=== PATIENT | female | born 1995 | race Caucasian/White ===

== ENCOUNTER 2021-10-10 15:31 | Outpatient (REF) | payer BC, SELFPAY ==
--- NOTE | 2021-10-10 14:30 | PAPFT_PTH ---
PATIENT: Awa Dudley LOC: [facility] U#:[id number] AGE/SX: 26/F ROOM: RE10/10/[address]: TOMMY Sarkar : 1995 BED: DIS: 10/10/2021 SPEC #: [id number] RECD: 10/10/21 17:07 STATUS: SULAIMAN REZohra #: [id number] BALNE: 10/10/21 14:[address]: Annalee Pate DEPT: [facility] Cytology RECD BY: Shamika Pham ENTERED: 10/10/21 17:07 SP TYPE: PAPFT OTHR DR: Isaias Recio Tissues: 1 - CX/ENDOCX FOR PAP SMEARS Procedures: PAP THIN PREP/[facility] Screening Comments: [id number]
== END 2021-10-10 15:32 | disposition home or self-care (01) ==
LOC: LBN 15:31
PROVIDERS: PCP Internal Medicine; Visit Provider Nurse Practitioner Family
DX: Z12.4 Encounter for screening for malignant neoplasm of cervix (principal)
CPT/HCPCS: 88142

== ENCOUNTER 2021-10-17 01:37 | Outpatient (CLI) | payer BC, SELFPAY ==
[2021-10-17 15:16] LABS: TSH (W/Ref FT4) 0.86 uIU/mL (0.36-3.74)
[2021-10-20 09:46] LABS: DHEA Sulfate 277 ug/dL (96-512)
[2021-10-21 18:08] LABS: 17-Hydroxyprogesterone <40 ng/dL
[2021-10-24 10:26] LABS: Testosterone, Total 23 ng/dL (8-60)
== END 2021-10-17 01:38 | disposition home or self-care (01) ==
LOC: LBO 01:38
PROVIDERS: PCP Internal Medicine; Visit Provider Nurse Practitioner Family
DX: N91.2 Amenorrhea, unspecified (principal)
CPT/HCPCS: 36415; 82627; 84402; 84403; 83498; 84146; 84443

== ENCOUNTER 2024-05-15 08:14 | Outpatient (REF) | payer BC, SELFPAY ==
[2024-05-16 12:15] LABS: Chlamydia Result Negative (Negative); GC Result Negative (Negative)
== END 2024-05-15 08:15 | disposition home or self-care (01) ==
LOC: LBN 08:14
PROVIDERS: PCP Internal Medicine; Visit Provider Nurse Practitioner Women's Health
DX: Z11.3 Encounter for screening for infections with a predominantly sexual mode of transmission (principal)
CPT/HCPCS: 87491; 87591

== ENCOUNTER 2024-10-22 14:21 | Observation (INO) | payer BC, SELFPAY ==
[2024-10-22] VITALS (31 sets, daily range): BP systolic 131–158; BP diastolic 65–92; PULSE 61–77; RESP 13–20; TEMP 36.4–36.6; O2SAT 98–100
--- NOTE | 2024-10-22 14:30 | DI.CT_ITS ---
Exam(s) CT ABDOMEN PELVIS W EXAM: CT ABDOMEN PELVIS W CLINICAL HISTORY: right upper abdominal and back pain. TECHNIQUE: Imaging Protocol: Axial computed tomography images with coronal and sagittal reformatted images were created and reviewed CONTRAST MATERIAL: Intravenous: Omnipaque 350 Contrast volume:100 ml Oral: no COMPARISON: US ABDOMEN ULTRASOUND (P) from 12/31/2014 FINDINGS: ABDOMEN and PELVIS: Lung Bases: No acute findings. Liver: Normal density. No suspicious mass. Gallbladder and biliary tract: Single calcified gallstone in the gallbladder neck. Gallbladder appea rs mildly distended. No wall thickening or pericholecystic fluid. No biliary dilation. Pancreas: Normal density. No abnormal calcifications or inflammatory process. No evidence of mass. Spleen: Normal. Kidneys: Normal size, contour and axis. No radiodense stones. No obstructive uropathy. No suspicious masses seen. Adrenal glands: No masses seen. Vasculature: Abdominal aorta non-dilated. Soft tissues: Tiny fat containing left inguinal hernia. Bladder: No gross wall thickening. No calculi.No focal mass. Bowel: No obstruction. No bowel wall thickening. Appendix normal. Mild sigmoid diverticulosis. No rmal quantity of stool. Peritoneal cavity: No ascites. No focal collection. No mesenteric inflammatory response. No free air . Bones: Unremarkable for age. Reproductive organs: Unremarkable. Lymph nodes: No pathologically enlarged lymph nodes. IMPRESSION:: Single calcified gallstone within the gallbladder neck. Mild gallbladder distention. No wall thickening or biliary dilatation. RADIATION DOSE DELIVERED: Total DLP DATA REPOSITORY: All CT scans at this facility are submitted to the National Radiology Data Registry (NRDR) Dose Index Registry (DIR) with the [employer] (ACR). RADIATION OPTIMIZATION: All CT scans at this facility use at least one of these dose optimization te chniques: automated exposure control; mA and/or kV adjustment per patient size (includes targeted exa ms where dose is matched to clinical indication); or iterative reconstruction.
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
[2024-10-22 15:02] LABS: Abs Immature Grans 0.02 10^3/uL (0.0-0.06); Absolute Basophil Count 0.05 10^3/uL (0.0-0.2); Absolute Eosinophil Count 0.31 10^3/uL (0.0-0.7); Absolute Lymphocyte Count 2.15 10^3/uL (1.2-3.4); Absolute Monocyte Count 0.77 10^3/uL (0.1-0.8); Absolute Neutrophil Count 6.12 10^3/uL (1.2-6.7); Basophils % 0.5 %; Eosinophils % 3.3 %; HGB 13.8 g/dL (11.2-15.7); Immature Grans % 0.2 %; Lymphocytes % 22.8 %; MCH 28.1 pg (27.0-33.0); MCHC 33.7 % (32.0-36.0); MCV 84 fL (80-95); MPV 9.7 fL (8.0-11.0); Monocytes % 8.2 %; Platelet Count 309 10^3/uL (130-400); RBC 4.91 10^6/uL (3.93-5.22); RDW 11.9 % (11.7-14.6); WBC 9.42 10^3/uL (4.4-10.8)
[2024-10-22] MEDS: Ketorolac 15 MG/ML VIAL IVP (15:04)
[2024-10-22] MEDS: Ondansetron 4 MG/2 ML VIAL IVP (15:04)
[2024-10-22] MEDS: Omnipaque 350 MG/ML 100 ML BTL IJ (15:13)
[2024-10-22] MEDS: Normal Saline - Diluent 50 ML VIAL IJ (15:14)
[2024-10-22 15:16] LABS: Bilirubin Negative (Negative); Blood Negative (Negative); Clarity Clear (Clear); Glucose Negative (Negative); Ketones Negative (Negative); Leukocyte Esterase Negative (Negative); Nitrite Negative (Negative); Specific Gravity 1.025 (1.005-1.025); pH 6.5 (5-8)
[2024-10-22 15:23] LABS: ALT 49 U/L (14-59); AST 22 U/L (15-37); Albumin 3.5 g/dL (3.4-5.0); Alkaline Phosphatase 85 U/L (46-116); Anion Gap 9.9 mmol/L (3-11); BUN 14 mg/dL (7-18); Bilirubin, Direct 0.1 mg/dL (0.0-0.2); Bilirubin, Total 0.4 mg/dL (0.2-1.0); CO2 27.1 mmol/L (21.0-32.0); Calcium 9.4 mg/dL (8.5-10.1); Chloride 106 mmol/L (98-107); Estimated GFR 78.21 (mL/min/1.73m2); Glucose 96 mg/dL (74-106); Lipase 26 U/L (<78); Magnesium 1.8 mg/dL (1.8-2.4); Potassium 3.8 mmol/L (3.5-5.1); Sodium 143 mmol/L (136-145); Total Protein 7.4 g/dL (6.4-8.2)
[2024-10-22] MEDS: ACETAMINOPHEN 1,000 MG/100 ML BAG 400 MG IVPB ×2 (16:07→20:46)
[2024-10-22 16:10] LABS: HCG Qual (Serum) Negative
[2024-10-22] MEDS: MORPHine 4 MG/ML SYR IVP (17:01)
--- NOTE | 2024-10-22 17:31 | DI.VRAD_ITS ---
PROCEDURE INFORMATION: Exam: CT Abdomen And Pelvis With Contrast Exam date and time: 10/22/2024 3:11 PM Age: 29 years old Clinical indication: Other: Right upper abdominal and back pain TECHNIQUE: Imaging protocol: Computed tomography of the abdomen and pelvis with contrast. Radiation optimization: All CT scans at this facility use at least one of these dose optimization techniques: automated exposure control; mA and/or kV adjustment per patient size (includes targeted exams where dose is matched to clinical indication); or iterative reconstruction. Contrast material: OMNI 350; Contrast volume: 100 ml; Contrast route: INTRAVENOUS (IV); COMPARISON: No relevant prior studies available. FINDINGS: Liver: Hepatomegaly. No focal masses. Gallbladder and biliary ducts: Large gallstone. There may be mild gallbladder distension. Pancreas: Normal. No ductal dilation. Spleen: Normal. No splenomegaly. Adrenal glands: Normal. No mass. Kidneys and ureters: Normal. No hydronephrosis. Stomach and bowel: Unremarkable. No obstruction. No mucosal thickening. Appendix: No evidence of appendicitis. Intraperitoneal space: Unremarkable. No free air. No significant fluid collection. Vasculature: Unremarkable. No abdominal aortic aneurysm. Lymph nodes: Unremarkable. No enlarged lymph nodes. Urinary bladder: Bladder is not well distended. Reproductive: Unremarkable as visualized. Bones/joints: There is straightening of the normal lumbar lordosis, possible muscle spasm. Vertebral body height is well preserved. Soft tissues: Small, fat containing left inguinal hernia. IMPRESSION: Gallbladder disease. Consider sonography. Dictated and Authenticated by: Dulce Mosqueda MD. Orderin Baldemar Albarran MD
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
--- NOTE | 2024-10-22 18:41 | W.PC.ACHO ---
Registration Status: Primary Language: Preferred Language: ED Information & Data Chief Complaint Abd Prob 10/22/24 14:47 Triage Note pt with severe lower back 10/22/24 14:30 pain, radiation to right side and around to front, stabbing in nature, took tyl in AM, pain 12/10, no issues with urination, no fever/chills, hurts to breath with pain, no hx of kidney stones, no trauma. Medical / Surgical History (Last Reviewed 07/06/23 @ 15:18 by Jennifer Strickland CNM) Asthma BMI 45.0-49.9, adult (Last Updated 10/17/24 @ 09:50 by Mary Kay Hussein RN) S/P wisdom tooth extraction (~2012) Tonsillectomy Excision, Skin Mass (12/22/11) Most Recent Vital Signs Temperature 36.6 C 10/22/24 15:15 Temperature Source Oral 10/22/24 15:15 Pulse 69 10/22/24 17:50 Pulse 69 10/22/24 17:50 Respiratory Rate 18 10/22/24 17:50 Blood Pressure 148/82 H 10/22/24 17:46 Blood Pressure Mean 100 10/22/24 17:46 Blood Pressure Position Sitting 10/22/24 15:15 Pulse Oximetry 99 10/22/24 17:50 Oxygen Delivery Method Room Air 10/22/24 15:15 Oxygen Flow Rate 0 10/22/24 14:30 Pain Level 8 10/22/24 17:01 Allergies No Known Allergies Allergy (Verified 10/22/24 14:30) Precautions Isolation Standard precaution 10/22/24 14:32 Active Medications Generic Name Dose Route Start Last Admin Trade Name Saúl PRN Reason Stop Dose Admin Iohexol 100 ml 10/22/24 15:15 10/22/24 15:13 Omnipaque 350 Mg/Ml 100 Ml Btl IJ 11/21/24 23:59 100 ml DIRECTED JASMYN Administration Sodium Chloride 50 ml 10/22/24 15:15 10/22/24 15:14 Normal Saline - Diluent 50 Ml Vial IJ 50 ml .FOR DI USE JASMYN Administration IV IV Catheter Type [Left Saline Lock Antecubital] IV Catheter Gauge [Left 18 Antecubital] Diet Orders Category Date Time Status Nothing Per Oral [DIET] Nutrition 10/22/24 Dinner Active Diagnostics 10/22/24 Range/Units 14:50 WBC 9.42 (4.4-10.8) 10^3/uL RBC 4.91 (3.93-5.22) 10^6/uL Hgb 13.8 (11.2-15.7) g/dL Hct 41.0 (36.0-46.0) % MCV 84 (80-95) fL MCH 28.1 (27.0-33.0) pg MCHC 33.7 (32.0-36.0) % RDW 11.9 (11.7-14.6) % Plt Count 309 (130-400) 10^3/uL MPV 9.7 (8.0-11.0) fL Immature Gran % 0.2 % Neutrophils % 65.0 % Lymphocytes % 22.8 % Monocytes % 8.2 % Eosinophils % 3.3 % Basophils % 0.5 % Nucleated RBC % 0.0 (0.0-0.3) % Absolute Neutrophils 6.12 (1.2-6.7) 10^3/uL Absolute Lymphocytes 2.15 (1.2-3.4) 10^3/uL Absolute Monocytes 0.77 (0.1-0.8) 10^3/uL Absolute Eosinophils 0.31 (0.0-0.7) 10^3/uL Absolute Basophils 0.05 (0.0-0.2) 10^3/uL Sodium 143 (136-145) mmol/L Potassium 3.8 (3.5-5.1) mmol/L Chloride 106 (98-107) mmol/L Carbon Dioxide 27.1 (21.0-32.0) mmol/L Anion Gap 9.9 (3-11) mmol/L BUN 14 (7-18) mg/dL Creatinine 1.0 (0.55-1.02) mg/dL Est GFR (CKD-EPI 2020) 78.21 (mL/min/1.73m2) Glucose 96 (74-106) mg/dL Calcium 9.4 (8.5-10.1) mg/dL Magnesium 1.8 (1.8-2.4) mg/dL Total Bilirubin 0.4 (0.2-1.0) mg/dL Conjugated Bilirubin 0.1 (0.0-0.2) mg/dL AST 22 (15-37) U/L ALT 49 (14-59) U/L Alkaline Phosphatase 85 (46-116) U/L Total Protein 7.4 (6.4-8.2) g/dL Albumin 3.5 (3.4-5.0) g/dL Lipase 26 (<78) U/L Serum HCG, Qual Negative Urine Color Yellow (Yellow) Urine Clarity Clear (Clear) Urine pH 6.5 (5-8) Ur Specific [place] 1.025 (1.005-1.025) Urine Protein Negative (Neg-Trace) mg/dL Urine Ketones Negative (Negative) mg/dL Urine Blood Negative (Negative) Urine Nitrite Negative (Negative) Urine Bilirubin Negative (Negative) Urine Urobilinogen 1.0 H (Up to 0.2) mg/dL Ur Leukocyte Esterase Negative (Negative) Urine Glucose Negative (Negative) mg/dL Xilul-ud-Ettl Documentation POC Urine Test Start: 10/22/24 14:26 Freq: .Urine Test Status: Active Protocol: Activity Type Activity Date Activity User E-sign Co-sign Detail Recorded Client Recorded Date Recorded By Document 10/22/24 15:11 [facility] [id number] 10/22/24 15:11 [facility] Intake and Output - 24 Hour Total 10/22/24 14:21 thru 10/22/24 16:25 Intake Total 100 Balance 100 Weight 131.088 kg Intake: IV 100 Falls Risk Assessment History of Falls No History 10/22/24 15:15 Contributing Factors No Factors 10/22/24 15:15 Ambulatory Aids Independent 10/22/24 15:15 Tubes/Lines None 10/22/24 15:15 Gait Evaluation No gait disturbance 10/22/24 15:15 Cognition No cognitive impairment 10/22/24 15:15 Fall Total Score 0 10/22/24 15:15 Level of Risk Standard/Low Risk 10/22/24 15:15 Problems (Last Reviewed 07/06/23 @ 15:18 by Jennifer Strickland CNM) Acute cholecystitis due to biliary calculus (Acute) v v v v v v v v v Sending and/or Receiving Nurses: Please use comment section below to note any information pertinent to the patient hand-off not included above. Information / Comments: Report received from:TAMMY Hankins RN. report @ 18:15.
[2024-10-22] MEDS: Normal Saline Flush 10 ML SYR IVP (20:46)
[2024-10-22] MEDS: PIPERACILLIN/TAZO 3.375 GM in Normal Saline 50 ML IVPB (20:47)
[2024-10-22] MEDS: Heparin 5,000 UNITS/ML VIAL 5000 UNITS SC (20:48)
[2024-10-23] VITALS (35 sets, daily range): BP systolic 105–131; BP diastolic 54–83; PULSE 55–84; RESP 9–22; TEMP 36.1–36.6; O2SAT 91–100; BMI 49.3
[2024-10-23] MEDS: ACETAMINOPHEN 1,000 MG/100 ML BAG 400 MG IVPB ×3 (00:25→14:10)
[2024-10-23] MEDS: PIPERACILLIN/TAZO 3.375 GM in Normal Saline 50 ML IVPB ×3 (00:54→12:04)
[2024-10-23] MEDS: Heparin 5,000 UNITS/ML VIAL 5000 UNITS SC (04:57)
[2024-10-23 06:44] LABS: Abs Immature Grans 0.01 10^3/uL (0.0-0.06); Absolute Basophil Count 0.05 10^3/uL (0.0-0.2); Absolute Lymphocyte Count 2.63 10^3/uL (1.2-3.4); Absolute Monocyte Count 0.53 10^3/uL (0.1-0.8); Absolute Neutrophil Count 3.44 10^3/uL (1.2-6.7); Basophils % 0.7 %; Eosinophils % 4.3 %; HCT 36.9 % (36.0-46.0); HGB 12.6 g/dL (11.2-15.7); Immature Grans % 0.1 %; Lymphocytes % 37.8 %; MCH 28.4 pg (27.0-33.0); MCHC 34.1 % (32.0-36.0); MCV 83 fL (80-95); MPV 9.7 fL (8.0-11.0); Monocytes % 7.6 %; Neutrophils % 49.5 %; Platelet Count 276 10^3/uL (130-400); RBC 4.44 10^6/uL (3.93-5.22); RDW 12.1 % (11.7-14.6); WBC 6.96 10^3/uL (4.4-10.8)
[2024-10-23 07:09] LABS: ALT 76 U/L (14-59); AST 42 U/L (15-37); Alkaline Phosphatase 63 U/L (46-116); BUN 13 mg/dL (7-18); Bilirubin, Total 0.6 mg/dL (0.2-1.0); Calcium 8.5 mg/dL (8.5-10.1); Chloride 108 mmol/L (98-107); Estimated GFR 78.21 (mL/min/1.73m2); Glucose 90 mg/dL (74-106); Potassium 3.5 mmol/L (3.5-5.1); Sodium 142 mmol/L (136-145); Total Protein 6.3 g/dL (6.4-8.2)
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
[2024-10-23] MEDS: Lactated Ringers 1,000 ML 155 ML IV (07:37)
[2024-10-23] MEDS: Normal Saline Flush 10 ML SYR IVP ×3 (08:29→15:24)
--- NOTE | 2024-10-23 09:27 | ANES.PREOP_ITS ---
General Info Date of Service Date Performed: 10/23/24 Height: 5 ft 5 in Weight: 134.445 kg Body Mass Index (BMI): 49.3 Surgical Procedure: Operation Date: 10/23/24 11:10 Proposed Procedure Side Surgeon p Cholecystectomy Laparoscopic Babak Ortiz MD Meds Allergies and Home Medications Allergies Allergy/AdvReac Type Severity Reaction Status Date / Time No Known Allergies Allergy Verified 10/22/24 14:30 Home Medication ?Medication ?Instructions ?Recorded etonogestrel 68 mg subdermal 1 implant subdermal ONCE #1 ea 09/06/24 implant (Nexplanon) Current Visit Medications: Current Medications Generic Name Dose Route Start Last Admin Trade Name Freq PRN Reason Stop Dose Admin Heparin Sodium (Porcine) 5,000 units 10/23/24 05:00 10/23/24 04:57 Heparin 5,000 Units/Ml Vial SC 5,000 units Q8H AJSMYN Administration Ringer's Solution 1,000 mls @ 155 mls/hr 10/22/24 18:15 10/23/24 07:37 IV 155 mls/hr INFUSION JASMYN Administration Piperacillin Sod/Tazobactam 50 mls @ 100 mls/hr 10/22/24 18:15 10/23/24 07:33 Sod 3.375 gm/ Sodium Chloride IVPB Infused Q6H JASMYN Infusion Acetaminophen 1,000 mg in 100 mls @ 400 mls/hr 10/22/24 18:15 10/23/24 07:09 Ofirmev IVPB Infused Q6H JASMYN Infusion IV Miscellaneous Supplies 1 each 10/22/24 14:45 Iv Access IV DIRECTED JASMYN IV Miscellaneous Supplies 1 each 10/22/24 18:15 Iv Access IV DIRECTED JASMYN Iohexol 100 ml 10/22/24 15:15 10/22/24 15:13 Omnipaque 350 Mg/Ml 100 Ml Btl IJ 11/21/24 23:59 100 ml DIRECTED JASMYN Administration Ketorolac Tromethamine 15 mg 10/22/24 18:04 Ketorolac 15 Mg/Ml Vial IVP 10/27/24 18:03 Q8H PRN PRN Morphine Sulfate 2 mg 10/22/24 18:02 Morphine 2 Mg/Ml Syr IVP Q1H PRN PRN Ondansetron HCl 4 mg 10/22/24 18:02 Ondansetron 4 Mg/2 Ml Vial IVP Q4H PRN PRN Sodium Chloride 0 ml 10/22/24 14:43 Normal Saline Flush 10 Ml Syr IVP PRN PRN Sodium Chloride 0 ml 10/22/24 20:00 10/23/24 08:29 Normal Saline Flush 10 Ml Syr IVP 10 ml BID JASMYN Administration Sodium Chloride 0 ml 10/22/24 14:43 Normal Saline 10 Ml Vial IJ DIRECTED PRN Sodium Chloride 50 ml 10/22/24 15:15 10/22/24 15:14 Normal Saline - Diluent 50 Ml Vial IJ 50 ml .FOR DI USE JASMYN Administration PFSH Active Problems Active Problems: Problem Status Onset Code Abdominal pain Acute R10.9 Gallstone Acute K80.20 Acute cholecystitis due to biliary calculus Acute K80.00 Obesity Chronic E66.9 Medical History Medical History (Updated 10/22/24 @ 18:33 by JUAN JOSE SHIN) Asthma BMI 45.0-49.9, adult Surgical History Surgical History (Updated 10/17/24 @ 09:50 by Mary Kay Hussein RN) S/P wisdom tooth extraction (~2012) T[age]illectomy around 5,6 y.o Excision, Skin Mass (12/22/11) abnormal musle belly on right foot Tobacco Smoking/Tobacco Use Status: Current-Occasional Substance Use Substance use: Occasionally Substance use type: marijuana Prental History History 2 0 Para Hx # Term Pregnancies Multiple births Hx # Pregnancies Ectopic pregnancies AB induced Hx Number of Living Children AB spontaneous Vital Signs and Lab Results Vital Signs Most Recent Vital Signs in EMR: Most Recent Vital Signs Temp Pulse Resp BP Pulse Ox 36.2 C L 66 16 131/82 100 10/23/24 06:02 10/23/24 06:02 10/23/24 06:02 10/23/24 06:02 10/23/24 06:02 Point of Care Results Point of Care Results: POC- Test(urine) Negative 10/22/24 15:11 Lab Results 10/23/24 06:13 10/23/24 06:13 Blood Type / Crossmatch: 2 No Data to Display Complete Blood Count: 2 White Blood Count 6.96 10^3/uL (4.4-10.8) 10/23/24 06:13 Red Blood Count 4.44 10^6/uL (3.93-5.22) 10/23/24 06:13 Hemoglobin 12.6 g/dL (11.2-15.7) 10/23/24 06:13 Hematocrit 36.9 % (36.0-46.0) 10/23/24 06:13 Platelet Count 276 10^3/uL (130-400) 10/23/24 06:13 Complete Metabolic Panel: 2 Sodium 142 mmol/L (136-145) 10/23/24 06:13 Potassium 3.5 mmol/L (3.5-5.1) 10/23/24 06:13 Chloride 108 mmol/L (98-107) H 10/23/24 06:13 Carbon Dioxide 27.0 mmol/L (21.0-32.0) 10/23/24 06:13 BUN 13 mg/dL (7-18) 10/23/24 06:13 Creatinine 1.0 mg/dL (0.55-1.02) 10/23/24 06:13 Est GFR (CKD-EPI 2020) 78.21 (mL/min/1.73m2) 10/23/24 06:13 Magnesium 1.8 mg/dL (1.8-2.4) 10/22/24 14:50 Calcium 8.5 mg/dL (8.5-10.1) 10/23/24 06:13 Albumin 3.0 g/dL (3.4-5.0) L 10/23/24 06:13 Glucose 90 mg/dL (74-106) 10/23/24 06:13 Liver Function Panel: 2 Alanine Aminotransferase (ALT/SGPT) 76 U/L (14-59) H 10/23/24 0 6:13 Aspartate Amino Transf (AST/SGOT) 42 U/L (15-37) H 10/23/24 06: 13 Coagulation Panel: 2 No Data to Display Cardiac Panel: 2 No Data to Display Arterial Blood Gas: 2 No Data to Display Venous Blood Gas: 2 No Data to Display Pancreas Panel: 2 Lipase 26 U/L (<78) 10/22/24 14:50 Thyroid Panel: 2 No Data to Display Infectious Disease: 2 No Data to Display Blood Cultures: 2 No Data to Display Toxicology Panel: 2 No Data to Display Panel: 2 Serum HCG, Qualitative Negative 10/22/24 14:50 Anesthesia Assessment and Plan Anesthesia History Personal History: No History of Anesthesia Complications Family History: No Family History of Anesthesia Complications Exercise Tolerance Exercise Tolerance: Metabolic Equivalents<4 Pertinent Negatives Pertinent Negatives: No Symptoms of GERD, No Major Cardiovascular Symptoms or Complaints, No Major Pulmonary Symptoms or Complaints and No History of CVA/TIA Cardiac & Pulmonary Exam Cardiac Exam: Normal S1/S2 Heart Sounds Pulmonary Exam: Clear Bilateral Breath Sounds Cardiac and Pulmonary Comment:: Childhood asthma, exercise-induced, no recent inhalers Implantable Cardiac Device Does patient have a Pacemaker or an ICD?: No Airway Exam Known Difficult Airway: No Mallampati Class: 3 Mouth Opening: Normal (> 3cm) Thyromental Distance: Greater than 3 cm Neck Range of Motion: Full ROM Neck Circumference: Thick Teeth Condition: Normal Dentition and Other (tongue ring, will remove prior to surgery) ASA Classification ASA Score: ASA 3 Emergency Case?: No NPO Status NPO Status: NPO Clears >2 hours, Solids >8 hours Status Status: Negative HCG Anesthesia Plan Resuscitation Status: Full Code Anesthesia Technique: General Anesthesia Airway Planned: Endotracheal Tube Monitors Used: Standard Monitors
[2024-10-23] MEDS: Bupivacaine 0.25% Pres-Free 30 ML VIAL (11:51)
[2024-10-23] MEDS: Bupivacaine LIPOSOME/PF 133 MG/10 ML VIAL IJ (11:52)
[2024-10-23] MEDS: Normal Saline 20 ML VIAL (11:53)
--- NOTE | 2024-10-23 12:20 | GB_PTH ---
PATIENT: Awa Dudley LOC: U#:[id number] AGE/SX: 29/F ROOM: RE10/22/[address]: Babak Ortiz : 1995 BED: A DIS: 10/23/2024 SPEC #: [id number] RECD: 10/23/24 12:55 STATUS: SULAIMAN REQ #: [id number] BLANE: 10/23/24 12:[address]: Babak Ortiz DEPT: Surgical Specimen RECD BY: Shamika Pham ENTERED: 10/23/24 12:56 SP TYPE: GB OTHR DR: Justin Dutton, ISIDORO Tissues: 1 - GALLBLADDER Procedures: GROSS AND MICRO LEVEL 3 Comments: [id number]
--- NOTE | 2024-10-23 12:30 | W.PM.OP ---
Operative Note Operative Note Refer to Anesthesia Record Procedure Description: Procedures performed: 1. Laparoscopic cholecystectomy 2. Laparoscopic bilateral TAP block Pre-op diagnosis: Acute cholecystitis Postoperative diagnosis: Same Surgeon: Minor Ortiz Anesthesia: Tara Corporate Training Manager: Raphael Indication for procedure: 29-year-old woman with right upper quadrant Bruno sign and imaging showing gallstones and suggestive of acute cholecystitis. FINDINGS: Distended and acutely inflamed gallbladder with significant pericholecystic fluid Specimens: 1. Gallbladder Complications: None Blood loss: 10 cc Urine output: Not measured Implants/drains: None Procedure in detail: Patient gave written consent and was in agreement with the indications, the likely benefits as well as the potential risks of surgery. She was taken back to the operating room where anesthesia was administered which was tolerated well. She was positioned supine on the operating room table and we then prepped and draped in sterile fashion. We confirmed DVT prophylaxis as well as antibiotics had been administered. When we were all in agreement with our timeout we started the procedure. Local anesthetic was injected just above the umbilicus. A small stab incision was made above the umbilicus and a 5 mm Optiview trocar was used to enter the abdominal cavity through this. Insufflation was performed which was tolerated well. A bilateral TAP block was performed under direct visualization. 2 more trocars were placed under direct visualization in the right hemiabdomen. Local anesthetic was also given in each of the sites. A 12 mm port was placed in the epigastrium under visualization. The gallbladder was easily visible and acutely inflamed. There was visible cholecystic fluid present around it underneath the peritoneum lining. The fundus of the gallbladder was grasped and retracted towards the patient's left shoulder cephalad. This nicely exposed the biliary plate and the relevant anatomy. A combination of blunt and electrocautery dissection was performed isolating the cystic duct and the cystic artery. The entire cystic plate was cleared off confirming only 2 structures seen going into the gallbladder. These were clipped and divided. I then removed the rest of the gallbladder off the liver bed using electrocautery. It was placed in an Endo Catch bag and removed from the abdominal cavity. The specimen was passed off the back table and placed in formalin. I then checked the gallbladder fossa for any bile leaking or any bleeding. Hemostasis was excellent and there was no evidence of any bile leaking from the bed. The 12 mm port site was then closed with 0 Vicryl in the fascia using a Geoff-Cayden. I rechecked for hemostasis 1 last time and it remained excellent. We released pneumoperitoneum. I removed the 5 mm trocars. The skin was closed with running Monocryl and Dermabond was placed on top of each site. Patient tolerated the procedure well. The sponge, instruments and sharps counts were correct x3 at the end of the procedure. She was extubated and taken to the PACU in hemodynamically stable condition. Date of Procedure: 10/23/24
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
[2024-10-23] MEDS: fentaNYL 100 MCG/2 ML VIAL IVP (12:52)
[2024-10-23] MEDS: HYDROmorphone 2 MG/ML SYR IVP ×2 (12:56→13:10)
[2024-10-23] MEDS: MORPHine 2 MG/ML SYR IVP ×2 (14:08→15:23)
--- NOTE | 2024-10-23 14:41 | W.ANESPOSTOP ---
Postoperative Evaluation Date, Time and Location Date Performed: 10/23/24 Time Performed: 13:38 Patient Location: PACU Vital Signs Most Recent Imported Vital Signs: Most Recent Vital Signs Temp Pulse Resp BP Pulse Ox 36.3 C L 62 15 117/74 96 10/23/24 14:17 10/23/24 14:17 10/23/24 14:17 10/23/24 14:17 10/23/24 14:17 Pain Score Most Recent Pain Score: Most Recent Pain Score Pain Level 6 10/23/24 14:17 Assessment Mental Status: Awake (Alert & Oriented to Patient Baseline) Airway and Respiratory Function: Patent airway with normal (patient baseline) respiratory exam Cardiovascular Function: Hemodynamically Stable Hydration Status: Adequately Hydrated Nausea & Vomiting: No Nausea or Vomiting Pain: Pain is tolerable per patient Peripheral Nerve Block: Patient did not receive a nerve block
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
== END 2024-10-23 18:16 | disposition home or self-care (01) ==
LOC: ER 18:07 → MS 18:33
PROVIDERS: Admitting Provider Student in an Organized Health Care Education/Training Program; Emergency Provider Emergency Medicine; PCP Nurse Practitioner Family; Visit Provider Student in an Organized Health Care Education/Training Program
PROC: 0FT44ZZ Resection of Gallbladder, Percutaneous Endoscopic Approach (ICD-10-PCS; CPT 47562; principal; 2024-10-23 11:00)
DX: K80.12 Calculus of gallbladder with acute and chronic cholecystitis without obstruction (principal); Z68.42 Body mass index [BMI] 45.0-49.9, adult; F12.90 Cannabis use, unspecified, uncomplicated; F17.210 Nicotine dependence, cigarettes, uncomplicated; J45.909 Unspecified asthma, uncomplicated; E66.9 Obesity, unspecified
CPT/HCPCS: 47562; 36415; 80053; 81025; 83690; 96361; 96365; 96366; 96367; 96372; 96375; 96376; 99285; 74177; 81003; 82248; 83735; 84703; 85025; 88304; G0378; J0131; J0665; J0666; J1100; J1171; J1644; J1805; J1885; J2003; J2270; J2405; J2543; J2704; J3010; J3475; J3490

== ENCOUNTER 2025-03-01 02:08 | Outpatient (CLI) | payer BC, SELFPAY ==
--- NOTE | 2025-03-01 06:45 | DI.RAD_ITS ---
Exam(s) XR FOOT RT COMPLETE EXAM: XR FOOT RT COMPLETE CLINICAL HISTORY: Right foot pain, M79.671. TECHNIQUE: 2D digital imaging was performed. COMPARISON: No exams were available for comparison FINDINGS: 3 views There is no evidence of acute fracture or diastasis of the Lisfranc joint. The great toe metatarsophalangeal joint appears un remarkable as do the other articulations of the foot. There is inferior calcaneal spur and there is also an enthesophyte on the posterior calcaneus Achilles insertion site. There is also prominence of the posterior superior calcaneus. There are no calcifications in the plantar fascia. IMPRESSION: No acute osseous findings in the foot although there are findings in the calcaneus as described above. Correlation with any clinical findings of Berenice syndrome recommended. DATA REPOSITORY: RADIATION DOSE DELIVERED:
== END 2025-03-01 02:28 ==
LOC: DI 02:08
PROVIDERS: PCP Nurse Practitioner Family; Visit Provider Podiatrist
DX: M79.671 Pain in right foot (principal)
CPT/HCPCS: 73630